=== PATIENT | male | born 1980 | race Two or more races ===

== ENCOUNTER 2024-03-29 09:22 | Emergency (ER) | payer OTHER ==
[2024-03-29] MEDS: cefTRIAXone 2 GM Vial IVPUSH ONE (10:08)
[2024-03-29] MEDS: metroNIDAZOLE/Normal Saline 500 MG in Premix Bag 1 BAG IV ONE (10:08)
[2024-03-29] MEDS: Diphtheria,Pertussis(Acell),Tetanus Vaccine 0.5 ML Syringe IM ONE (10:08)
[2024-03-29] MEDS: Lidocaine 1% 5 ML VIAL INJECT ONE (11:26)
[2024-03-29] MEDS: Acetaminophen 500 MG Tab PO ONE (12:11)
== END 2024-03-29 12:46 | disposition home or self-care (01) ==
LOC: DL.ED 09:22
DX: S68.114A Complete traumatic metacarpophalangeal amputation of right ring finger, initial encounter (principal); W23.1XXA Caught, crushed, jammed, or pinched between stationary objects, initial encounter; Z23 Encounter for immunization
CPT/HCPCS: 12002; 73140; 90471; 90715; 96365; 96375; 99283; A9270; J0696; J1836; J3490

== ENCOUNTER 2024-04-04 14:13 | Emergency (ER) | payer OTHER | END 2024-04-04 15:25 | disposition left against medical advice (07) | LOC: DL.ED 14:13 | DX: Z53.21 Procedure and treatment not carried out due to patient leaving prior to being seen by health care provider (principal) ==